=== PATIENT | female | born 1960 | race African-American/Black ===

== ENCOUNTER 2017-11-24 14:56 | Emergency (ER) | payer OTHER ==
[~2017-11-24] VITALS: Ht 152.4 cm; Wt 56.8 kg
[2017-11-24 16:14] VITALS: BP 118/81
[2017-11-24] MEDS ORDERED: KETOROLAC TROMETHAMINE 60 MG/2 ML VIAL IM ONE (16:15)
== END 2017-11-24 17:05 | disposition left against medical advice (07) ==
LOC: EMS 14:59
DX: S00.03XA Contusion of scalp, initial encounter (principal); F17.210 Nicotine dependence, cigarettes, uncomplicated; Z88.0 Allergy status to penicillin; Y35.811A Legal intervention involving manhandling, law enforcement official injured, initial encounter; Y93.89 Activity, other specified; Y92.89 Other specified places as the place of occurrence of the external cause; Y99.8 Other external cause status
CPT/HCPCS: 96372; 99283; J1885